=== PATIENT | female | born 1995 | race Caucasian/White ===

== ENCOUNTER → 2021-09-24 | Outpatient (CLI) | payer BC ==
--- NOTE | 2021-09-25 03:00 | MR ---
EXAMINATION TYPE: MR brain and iac wo/w con DATE OF EXAM: 09/24/2021 COMPARISON: None HISTORY: Pulsatile Tinnitus CONTRAST: Standard multiplanar, multisequence MRI departmental protocol images were obtained without contrast a nd with 9 mL intravenous Gadavist gadolinium contrast. Ventricles and sulci appear normal. There is no mass effect or midline shift. There is no evidence of intracranial hemorrhage. Diffusion images show no evidence of an acute infarct. The brainstem is intact. Corpus callosum is intact. Sella turcica appears normal. There is no evidenc e of orbital mass. The joseph and white matter structures have normal signal pattern. There is no evide nce of cerebral edema. There is normal signal pattern of the temporal bones. No evidence of mastoidit is. No evidence of posterior fossa mass. The internal auditory canals appear normal. There is no evidence of cerebellopontine angle mass. The contrast images show no pathologic enhancement. There is normal enhancement of the venous sinuses. Th ere is no evidence of sellar mass. IMPRESSION: Negative MR scan of the brain. No evidence of posterior fossa abnormality.
== END | disposition home or self-care (01) ==
LOC: RADMRIMAIN 15:00
PROVIDERS: ATTEND Nurse Practitioner Family
DX: H93.A1 Pulsatile tinnitus, right ear (principal)
CPT/HCPCS: 70553; A9585

== ENCOUNTER → 2021-10-20 | Outpatient (CLI) | payer BC ==
--- NOTE | 2021-10-20 11:29 | MR ---
EXAMINATION TYPE: MR angio head wo con DATE OF EXAM: 10/20/2021 COMPARISON: MR brain 09/25/2019 HISTORY: Pulsatile tinnitus right sided, headaches TECHNIQUE: Time of flight images focusing on the [place] were performed without contrast. Th ree-dimensional reconstructions were performed on an alternate workstation and reviewed FINDINGS: Anterior and posterior circulation are intact. There is no evident stenosis, embolus, aneur ysm, or dissection. Along the internal auditory canal, axial image #[id number] there is a vascular loop present of the anterio r inferior cerebellar artery on the right. IMPRESSION: Findings described above may be the cause of patient's pulsatile tinnitus.
--- NOTE | 2021-10-20 11:39 | MR ---
MRA neck with and without contrast HISTORY: Pulsatile tinnitus [id number] imaging obtained through the neck, three-dimensional postprocessing was performed, mul tiplanar multisequence and postcontrast images obtained through the neck, patient received 9.5 cc Bhavin avist IV. Three-dimensional reconstructions performed on an alternate workstation and reviewed. The transverse aorta, innominate, left and right common carotid, left and right subclavian, left and right vertebral arteries are patent, internal and external carotid arteries are widely patent. There is no evident dissection or significant stenosis by NASCET criteria. IMPRESSION: Normal neck magnetic resonance angiography
== END | disposition home or self-care (01) ==
LOC: RADMRIMAIN 09:05
PROVIDERS: ATTEND Otolaryngology
DX: H93.A1 Pulsatile tinnitus, right ear (principal); R51.9 Headache, unspecified
CPT/HCPCS: 70544; 70549; A9585